=== PATIENT | female | born 1965 | race Caucasian/White ===

== ENCOUNTER 2018-09-25 16:05 | Inpatient (IN) ==
[2018-09-25] MEDS ORDERED: DUONEB (A & A) INH ONE (16:25)
[2018-09-25 16:42] LABS: BASO# 0.03 X1000 (0.0-0.2); BASO% 0.2 % (0.0-0.8); EOS# 0.02 X1000 (0.0-0.7); EOS% 0.1 % (0.0-10.0); HEMATOCRIT 44.4 % (37.0-47.0); HEMOGLOBIN 14.4 g/dL (12.0-16.0); IMM GRAN# 0.04 X1000 (0.0-0.04); IMM GRAN% 0.2 % (0.0-0.5); LYMPH# 2.24 X1000 (1.2-3.4); LYMPH% 13.8 % (20.5-51.1); MCH 29.9 PG (27-31); MCHC 32.4 g/dL (33-37); MCV 92.3 FL (81-99); MONO# 1.41 X1000 (0.11-0.59); MONO% 8.7 % (1.7-9.3); MPV 10.7 FL (7.4-10.4); NEUT# 12.45 X1000 (1.4-6.5); PLT 255 X1000 (130-400); RBC 4.81 XMIL (4.2-5.4); RDW 12.6 % (11.5-14.5); WBC 16.19 X1000 (4.8-10.8)
[2018-09-25] MEDS ORDERED: MORPHINE IV ONE (16:56)
[2018-09-25] MEDS ORDERED: SOLU-MEDROL IV ONE (16:56)
[2018-09-25] MEDS ORDERED: ROCEPHIN 1 GM in NS 50 ML IV ONE (16:56)
[2018-09-25] MEDS ORDERED: ZITHROMAX 500 MG/NS 500 MG/250 ML IVPB IV ONE (16:56)
[2018-09-25 17:02] LABS: ALLEN TEST YES; BLOOD TYPE ARTERIAL; HCO3-(ACT) 24.8 mmoll (20.0-26.0); METHB 0.9 % (0.0-1.5); O2(CT) 19.5 mL/dL (15.0-23.0); O2HB 93.2 % (95.0-99.0); PCO2(98.6) 36 mmHg (35-45); PO2(98.6) 71 mmHg (60-100); SAMPLE BLOOD; SAO2 95.9 % (95.0-100.0); THB 14.9 g/dL (11.5-17.4); pH(98.6) 7.43 (7.35-7.45)
[2018-09-25 17:03] LABS: MODALITY CANNULA
[2018-09-25 17:08] LABS: AGAP 11; ALBUMIN 3.7 g/dL (3.5-5.0); ALKALINE PHOSPHATASE 52 U/L (32-104); BUN 19 mg/dL (8-22); CALCIUM 10.1 mg/dL (8.8-10.2); CHLORIDE 95 mmol/L (98-107); COSMO 272; CREATININE 0.9 mg/dL (0.5-0.9); ESTIMATED GFR > 60; GLUCOSE 160 mg/dL (70-104); GOT 7 U/L (10-30); GPT 8 U/L (10-36); POTASSIUM 4.7 mmol/L (3.5-5.1); SODIUM 133 mmol/L (136-145); TCO2 27 mmol/L (25-35); TOTAL BILIRUBIN 0.69 mg/dL (0.20-1.00); TOTAL PROTEIN 7.3 g/dL (6.3-8.3)
[2018-09-25] MEDS ORDERED: NS 1,000 ML IV ONE (17:17)
--- NOTE | 2018-09-25 17:49 | Diag Imaging Result Doc PS360 ---
EXAM: CHEST-2 VIEWS INDICATION: cough TECHNIQUE: 2 views COMPARISON: 08/22/2018 FINDINGS: There is a known right hilar mass, which is similar in size when compared to the previous study. However, there is now airspace infiltrate in the right perihilar region and right lower lung zone suggesting pneumonia that is probably postobstructive. The left lung is clear. There is no discrete pleural fluid collection or pneumothorax. The cardiomediastinal silhouette and central vasculature are grossly unremarkable. IMPRESSION: Known right hilar mass with right mid and lower lung zone consolidation that is probably postobstructive. Electronically signed by Kirit Dominique 09/25/2018 5:46 PM
[2018-09-25 18:24] LABS: ALLEN TEST YES; BE -0.2 mmoll (-3.0-3.0); BLOOD TYPE ARTERIAL; HCO3-(ACT) 24.7 mmoll (20.0-26.0); O2(CT) 18.9 mL/dL (15.0-23.0); O2HB 95.9 % (95.0-99.0); PCO2(98.6) 29 mmHg (35-45); PO2(98.6) 107 mmHg (60-100); SAMPLE BLOOD; SAO2 98.4 % (95.0-100.0); THB 13.9 g/dL (11.5-17.4); pH(98.6) 7.49 (7.35-7.45)
[2018-09-25 18:25] LABS: MODALITY SIMPLE MASK
[2018-09-25] MEDS ORDERED: ZOFRAN IV PRN (19:13)
[2018-09-25] MEDS ORDERED: NICODERM PATCH TD PRN (19:13)
[2018-09-25] MEDS ORDERED: TYLENOL PO PRN (19:13)
[2018-09-25] MEDS ORDERED: ROCEPHIN 1 GM in NS 50 ML IV SCH (19:15)
[2018-09-25 19:26] LABS: INR 1.01; PROTIME 14.1 Seconds (11.0-16.0)
[2018-09-25] MEDS: DUONEB (A & A) INH SCH ×2 (19:30→23:15)
[2018-09-25] MEDS: LOVENOX SUBQ SCH (20:11)
--- NOTE | 2018-09-25 20:23 | HISTORY AND PHYSICAL ---
CHIEF COMPLAINT: Right chest pain. HISTORY OF PRESENT ILLNESS: The patient is a 53-year-old white female followed by Dr. Coates who presents to the emergency room complaining of a 1-1/2 day history of illness. She has had fever up to 102.5 developing yesterday. She has had cough productive of yellowish phlegm and today as had extreme right chest pain. 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 Harmon. She was scheduled to come in tomorrow for port placement per Dr. Balderas and is scheduled to start chemotherapy per Dr. Hernandez. MEDICATIONS: Prior to admission are Invokana 300 mg p.o. daily, Amaryl 2 mg p.o. daily, losartan 50 mg p.o. daily, gabapentin 300 mg p.o. b.i.d., Janumet XR 07/999 one p.o. daily, omeprazole 40 mg p.o. daily, Lipitor 10 mg p.o. daily. ALLERGIES: NKDA. PAST MEDICAL HISTORY: 1. Small cell lung CA on the right, diagnosed [address] Harmon per bronchoscopy and biopsy with plans for chemo per Dr. Hernandez. 2. Type 2 diabetes mellitus for many years. 3. Hypertension. 4. Hypercholesterolemia. 5. GERD. 6. Peripheral neuropathy. 7. Chronic low back pain. PAST SURGICAL HISTORY: 1. Cholecystectomy. 2. BTL. 3. Bronchoscopy with biopsy. 4. History of cervical biopsy and conization. FAMILY HISTORY: Notable for acute leukemia in her father, COPD in her father, atrial fibrillation in her father, diabetes in her father, CT in her father in his 70s. Multiple myeloma in her mother. Sister with asthma and cervical cancer. SOCIAL HISTORY: The patient lives in the local area. She is . She has 3 children. She has a greater than 30 pack year history of smoking, but quit within the past week. No alcohol usage. 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 REVIEW OF SYSTEMS: ROS notable for somewhat chronic diarrhea after her gallbladder was removed. She has also had some episodic low back pain, long-standing with MRI done on that in the past 2 years, which was negative for metastatic disease, did show some degenerative disk disease. MRI also done on the brain in the past few days per Dr. Hernandez with no metastatic disease identified. Otherwise, ROS negative except as above. PHYSICAL EXAMINATION: VITAL SIGNS: Temperature 100, pulse 118, respirations 30, blood pressure 141/45, O2 sat on room air was 91%. Weight 262, 6 feet tall. Pulse came down to 104 after treatment with morphine for pain 4 mg per ER physician. Blood pressure also decreased some and has improved since receiving fluid bolus of 1 L per the ER physician. She is not retaining CO2 by ABGs notably. Pain is better controlled after the morphine. GENERAL: Mild to moderate obesity. SKIN: No rashes. HEENT: NC/AT, PERRL, EOMI. Sclerae anicteric. Left TM with some dullness, chronic changes, possible prior perforated TM appears to have healed over. Right TM normal. OP no redness, slightly elongated uvula with a small area of redness at the tip, not severe. NECK: No LA, TMG, JVD or bruits. CARDIOVASCULAR: RRR, without murmur. LUNGS: Crackles and minimal rhonchi right lung base. Otherwise, distant breath sounds. BACK: No CVA tenderness. ABDOMEN: Protuberant, soft, NT, ND. No mass. No HSM. BREASTS/PELVIC/RECTAL: Deferred. EXTREMITIES: No calf tenderness, cords or edema. Spider veins over the shins prominent. NEUROLOGIC: CN 2 through 12 intact. NF. LABORATORY: White count 16.19, hemoglobin 14.4, hematocrit 44.4, MCV 92, platelets 255,000, neutrophils 77, lymphocytes 14, monocytes 8.7. Sodium 133, potassium 4.7, chloride 95, CO2 27, BUN 19, creatinine 0.9, glucose 160, calcium 10.1, total bilirubin 0.69, AST 7, ALT 8, alkaline phosphatase 52, proBNP 64, total protein 7.3, albumin 3.7. Plasma lactate 1.4. ABG done on 4 L initially was: pH 7.43, pCO2 36, PO2 71, HC03 24.8, O2 sat 95.9%. Then, the patient received morphine 4 mg and she received some good pain control with that, but required a higher dosage of oxygen and required 1 L bolus of normal saline. ABG was repeated: pH 7.49, pCO2 29, PO2 107, HC03 24.7, O2 sat 98.4%, this was on 5 L per mask. Blood cultures x2 have been obtained. Chest x-ray reveals known right hilar mass with right mid and lower lung zone consolidation, probably postobstructive pneumonia. ASSESSMENT: 1. Postobstructive pneumonia, right mid and lower lung ca related to #2. 2. Small cell CA, right hilum. 3. Mild hypotension following administration of morphine for pain control. 4. Severe right chest pain thought related to #2. 5. Hypoxia related to #1 and #2, requiring oxygen at 5 L/minute per simple mask. 6. Type 2 diabetes mellitus. 7. Hypertension. 8. Hypercholesterolemia. 9. Mild chronic diarrhea associated with prior history of cholecystectomy. 10. History of smoking. Off cigarettes now for a week. PLAN: At this time, will admit the patient to medical floor on telemetry. Continue the oxygen via simple mask at 5 L/minute. Continue morphine at low dose to control her right chest pain. She received Rocephin 1 g and Zithromax 500 mg in the emergency room and blood cultures have been obtained, and we will continue those antibiotics at this time and will repeat CBC, BMP in the morning. We will give DuoNebs q.4 hours while awake. She has received 1 dose of Solu-Medrol 80 mg and will hold on additional doses of that at this time. Place her on a diabetic diet and monitors serial Accu-Cheks and give SSI as required, leaving her off her antihypertensive due to the hypotension and off her diabetic medications as she may be undergoing port placement soon per Dr. Balderas. We will give her prophylactic doses of Lovenox at this point as she is high risk for DVT and will place pneumatic compression hose as well. She will be up with assistance only. We will place her on a diabetic diet. Give her symptomatic relief as needed with her Tylenol, Robitussin DM, Zofran, continue her Neurontin and as stated continue low-dose morphine for pain control. Dr. Hernandez will also see the patient tomorrow in consultation. cc: Deepak Plummer MD
[2018-09-25] MEDS: NEURONTIN PO SCH (21:30)
[2018-09-25] MEDS: HUMULIN R SUBQ SCH (21:30)
[2018-09-25] MEDS: ROBITUSSIN-DM PO SCH (23:01)
[2018-09-25] MEDS: MORPHINE IV PRN (23:01)
[2018-09-26] MEDS: ROBITUSSIN-DM PO SCH ×6 (01:25→21:07)
[2018-09-26] MEDS: HUMULIN R SUBQ SCH ×4 (06:11→23:06)
[2018-09-26 06:41] LABS: HEMATOCRIT 38.5 % (37.0-47.0); HEMOGLOBIN 12.5 g/dL (12.0-16.0); IMM GRAN# 0.03 X1000 (0.0-0.04); IMM GRAN% 0.2 % (0.0-0.5); LYMPH# 1.99 X1000 (1.2-3.4); MCH 30.4 PG (27-31); MCHC 32.5 g/dL (33-37); MCV 93.7 FL (81-99); MONO# 1.08 X1000 (0.11-0.59); MPV 10.8 FL (7.4-10.4); NEUT# 12.22 X1000 (1.4-6.5); NEUT% 79.8 % (42.2-75.2); PLT 219 X1000 (130-400); RBC 4.11 XMIL (4.2-5.4); RDW 12.4 % (11.5-14.5); WBC 15.32 X1000 (4.8-10.8)
[2018-09-26 07:24] LABS: AGAP 11; BUN 24 mg/dL (8-22); CALCIUM 9.1 mg/dL (8.8-10.2); CHLORIDE 101 mmol/L (98-107); COSMO 286; CREATININE 0.8 mg/dL (0.5-0.9); ESTIMATED GFR > 60; GLUCOSE 253 mg/dL (70-104); POTASSIUM 4.7 mmol/L (3.5-5.1); SODIUM 137 mmol/L (136-145); TCO2 25 mmol/L (25-35)
--- NOTE | 2018-09-26 07:26 | GENERAL SURGERY CONSULTATION ---
DATE: 09/26/2018 REQUESTING PHYSICIAN: Dr. Plummer. REASON FOR CONSULTATION: Pneumonia with previously-scheduled port placement for today. HISTORY OF PRESENT ILLNESS: A 53-year-old female who I had seen in the office who I actually had on the schedule for a Port-A-Cath placement today. She came to the emergency department with worsening complaints of shortness of breath and right chest wall pain. This has been going on for 1-1/2 days. She had a fever that developed up to 102.5. She had a productive cough. She was seen. The concern was she is developing a pneumonia. I was asked to weigh an opinion. The patient is feeling a little bit better since admission, she has been fed and has been drinking this morning. She is on antibiotics. PAST MEDICAL HISTORY: 1. Small cell lung cancer. 2. Diabetes mellitus. 3. Hypertension. 4. Hypercholesterolemia. 5. Gastroesophageal reflux disease. 6. Peripheral neuropathy. 7. Chronic pain. PAST SURGICAL HISTORY: 1. Cholecystectomy. 2. Tubal ligation. 3. Bronchoscopy. 4. Surgical intervention for abnormal Pap smear. FAMILY HISTORY: Positive for leukemia, COPD, atrial fib, diabetes, NV, multiple myeloma, cervical cancer, asthma. SOCIAL HISTORY: Former smoker. HOME MEDICATIONS: Reviewed. ALLERGIES: None. REVIEW OF SYSTEMS: A full 10 point review of systems obtained negative as specified in HPI. EXAM: Vital Signs: The patient is currently afebrile. Her vital signs are stable. She is saturating 90% on 7 L nasal cannula. General: No acute distress. Alert, oriented female looks stated age. HEENT: Normocephalic, atraumatic. Pupils equal, round, reactive to light. Mucous membranes moist. Oropharynx benign. Neck: Supple trachea midline. Cardiovascular: Regular rate and rhythm. Lungs: Grossly clear. Some coarse sounds noted. Abdomen: Soft, nontender, nondistended. Extremities: Moves all extremities. Neurologic: Grossly intact. Skin: No signs of jaundice. Vascular: All extremities perfused. LABORATORY: White blood cell count 16, hematocrit 44, platelet count 255,000. ABG reviewed. Remainder of labs reviewed. ASSESSMENT AND PLAN: A 53-year-old female with lung cancer and possible pneumonia. 1. Lung cancer. At this time, the pneumonia is probably related to the lung cancer, but given the fact that she has leukocytosis and a fever, I would like to give her at least a couple days of antibiotics. Her respiratory status is somewhat tenuous with being on 7 L right now still saturating in the 90s. May need to give her some breathing treatments to see if we can make some improvement. We will hold off on the port right now given the fact that she has an active infection. I have tentatively switched to have it done on Wednesday in the morning. This will at least give us several days of antibiotics before putting the port in her. cc: MD Dale Burgos MD
[2018-09-26] MEDS: MUCOMYST 20% INH SCH ×2 (07:38→19:15)
[2018-09-26] MEDS: DUONEB (A & A) INH SCH ×5 (07:38→23:06)
--- NOTE | 2018-09-26 07:49 | PROGRESS NOTE ---
DATE: 09/26/2018 HISTORY: A 53-year-old, white, female patient admitted with fever, chills, cough, expectoration, chest wall pain, and leukocytosis. Chest x-ray in the ER did reveal postobstructive pneumonia. The patient recently diagnosed to have small-cell lung cancer. The patient was hypoxemic. Clinically, patient is doing better. She denied any high-grade fever. Her shortness of breath is improving. The patient still has some chest wall pain. No hemoptysis. No nausea or vomiting. Denied any diarrhea, blood or mucus in the stool. No dysphagia or odynophagia. Admission history and physical noted. PAST MEDICAL HISTORY: Hypertension, hyperlipidemia, diabetes mellitus, low back pain, recently diagnosed to have small-cell lung cancer, gastritis and reflux disease, obesity. PHYSICAL EXAMINATION: Vital Signs: Blood pressure 111/60, pulse 69, respirations 19, temperature 98.5 degrees, T-max at home of 102. Skin: Normal turgor. Neck: Supple. No JVD, thyromegaly, or lymphadenopathy. Chest: Inspiratory crepitations, right base. Occasional wheezing. CVS: S1 and S2 heard. Abdomen: Soft, globular. Bowel sounds present. Extremities: No cyanosis, clubbing. No acute DVT. DI[employer]ER: Alert, awake. Able to move all 4 limbs. No acute DVT in the legs. CONSIDERATION: 1. Postobstructive pneumonia. 2. Small-cell lung cancer. 3. Diabetes mellitus. 4. History of hypertension but blood pressure doing better. 5. Gastritis and reflux disease. 6. Low back pain. PLAN: I am going to change antibiotics to Zosyn and Levaquin. Continue rest of the treatment. Monitor Accu-Chek. Pulmonary toilet. Overall plan discussed with the patient and she is in agreement. cc: Dale Coates MD
--- NOTE | 2018-09-26 09:52 | EKG Report ---
Test Performed on : 09/25/2018 4:21:46 PM Test Reason : diff breathing Blood Pressure : / mmHG Vent. Rate : 112 BPM Atrial Rate : 112 BPM P-R Int : 120 ms QRS Dur : 076 ms QT Int : 314 ms P-R-T Axes : 080 067 049 degrees QTc Int : 428 ms Sinus tachycardia. Nonspecific ST abnormality Abnormal ECG When compared with ECG of 22-AUG-2018 16:47, (Unconfirmed) Vent. rate has increased BY 43 BPM Unconfirmed Result
[2018-09-26] MEDS: LEVAQUIN 750 MG in NS 150 ML IV SCH (10:03)
[2018-09-26] MEDS: NEURONTIN PO SCH ×2 (10:03→20:23)
[2018-09-26] MEDS: PRILOSEC PO SCH (10:04)
[2018-09-26] MEDS: MORPHINE IV PRN ×2 (10:15→20:31)
[2018-09-26] MEDS: ZOSYN 3.375 GM in NS 50 ML IV SCH ×2 (12:36→20:23)
--- NOTE | 2018-09-26 14:51 | HEMO/ONC CONSULTATION ---
DATE: 09/26/2018 CHIEF COMPLAINT: We have been consulted for the management of patient's small cell lung cancer. HISTORY OF PRESENT ILLNESS: Ms. Salvador is a 53-year-old female who presented to the emergency department complaining of increased shortness of breath, fevers, productive cough with yellow phlegm and extreme right chest pain. The patient says she continues to increase and get worse, and was admitted at that time for further management and evaluation of possible pneumonia. Ms Salvador recently started following us in clinic for her small cell lung cancer. The patient was recently diagnosed with small cell lung cancer by Dr. Harmon on bronchoscopy. The patient was supposed to be getting a port placed, that way we can start chemotherapy as soon as possible. PAST MEDICAL HISTORY: Small cell lung cancer, type 2 diabetes mellitus, hypertension, hypercholesterolemia, GERD, peripheral neuropathy and chronic low back pain. PAST SURGICAL HISTORY: Cholecystectomy, BTL, bronchoscopy and cervical biopsy and colonization. FAMILY HISTORY: Acute leukemia, COPD, atrial fibrillation, diabetes and multiple myeloma, has been cervical cancer. SOCIAL HISTORY: She has a greater than 30 pack year history of smoking, quit within the last week. No alcohol or illicit drug use. ALLERGIES: No known drug allergies. HOME MEDICATIONS: Invokana, gabapentin, glimepiride, losartan, metoclopramide, multivitamins, promethazine, Janumet XR, vitamin B complex and zinc. REVIEW OF SYSTEMS: Negative as per HPI. PHYSICAL EXAMINATION: Vital Signs: Temperature 98.2, heart rate 74, respiratory rate 18, blood pressure 104/46. Satting 90% on nasal cannula. General: Patient is awake, lying in bed. No acute distress noted. HEENT: Anicteric. Pupils PERRLA. Mucous membranes moist. Neck: Supple. Trachea midline. No JVD. Lymph Nodes: No palpable lymphadenopathy. Cardiovascular: S1, S2. Regular rate and rhythm. No rubs or murmurs. Lungs: Bilateral breath sounds with crackles and rhonchi in the right lung base. Abdomen: Soft, nontender. Bowel sounds present all 4 quadrants. No hepatosplenomegaly noted. Skin: Warm, dry and intact. Neurologic: Alert and oriented x 3. No focal deficits noted. LABORATORY DATA: White cell count 15.32, hemoglobin 12.9, hematocrit 38.5, platelets are 219,000. Potassium 4.7, BUN 24, creatinine 0.8. Chest x-ray: Radiology results of chest x-ray shows known right hilar mass with right mid and lower lung zone consolidation that is probably postobstructive. ASSESSMENT AND PLAN: 1. Small-cell lung cancer: The patient to get Port-A-Cath placement on Wednesday to start treatment as soon as possible. We will get Dr. Harmon consulted as well for further evaluation to see if we can start treatments. 2. Post obstructive pneumonia: The patient will continue antibiotics. Continue medication per primary team and consult Dr. Harmon. 3. Diabetes mellitus, continue recommendations per primary medical team. 4. Hypertension. Aware. Continue recommendations per primary medical team. 5. GERD. Continue PPI and recommendations by primary medical team. 6. Chronic lower back pain. Continue recommendations per primary medical team. 7. Deep venous thrombosis prophylaxis. Continue Lovenox as ordered. Dictated by LEAH Monroy for Luther Hernandez MD Patient seen and examined. Patient has been recently diagnosed with limited stage small cell lung cancer. She presented with fever, cough and right posterior chest pain. Chest x-ray was concerning for pneumonia. She has been admitted and is on antibiotics. Her chest pain is much better. She was due to have a Port-A-Cath placed today and chemotherapy tomorrow, which has been postponed. We will consult Dr. Harmon. Plan for chemotherapy as soon as possible. Luther Hernandez M.D. cc: LEAH Monroy MD Bharat K. Vakharia, MD [facility]ITAL[facility]
[2018-09-26] MEDS ORDERED: ZITHROMAX 500 MG/NS 500 MG/250 ML IVPB IV SCH (17:30)
[2018-09-26] MEDS: LOVENOX SUBQ SCH (20:25)
--- NOTE | 2018-09-26 23:35 | PULMONOLOGY CONSULTATION ---
DATE: 09/26/2018 REASON FOR CONSULTATION: Lung cancer and fevers. HISTORY OF PRESENT ILLNESS: Ms Salvador is a 53-year-old white female who was initially seen in my office 09/08/2018 with a newly diagnosis lung mass. Patient underwent bronchoscopy on 09/12/2018 which revealed tumor involving the bronchus intermedius with tumor involving the airflow divider between the middle lobe and lower lobe with no narrowing of the middle lobe entrance. Biopsies confirmed small cell carcinoma. The patient was referred to Oncology. The patient was scheduled to have a port placement. This weekend she developed chest pain along with fevers as high as 102 degrees. Chest x-ray was performed which reveals new airspace infiltrate involving the right perihilar region along with the right lower lung zone. The patient was admitted for additional evaluation and management. PAST MEDICAL HISTORY: 1. Recent diagnosis of small-cell carcinoma as per above. 2. Type 2 diabetes mellitus. 3. Chronic back pain. 4. B12 deficiency. 5. Status post cholecystectomy . 6. History uterine ablation. SOCIAL HISTORY: Recent discontinuation of tobacco. No significant alcohol use. She is . FAMILY HISTORY: Positive for leukemia, COPD, diabetes, coronary artery disease, cervical cancer, and multiple myeloma. REVIEW OF SYSTEMS: Notable for anterior chest pain, fevers, increased cough with yellow to blood- tinged sputum. PHYSICAL EXAMINATION: Reveals a healthy-appearing white female who appears to be in no distress. BP 115/51, heart rate 78, respiratory rate 16, oxygen saturation 95%.HEENT: Pupils are equal and reactive. Oropharynx appears clear. Neck: Supple. Chest: Reveals coarse rhonchi, right base. Cardiac: S1, S2. Abdomen: Soft and without hepatosplenomegaly. Extremities: Without edema. LABORATORIES: White blood count 15.3 thousand, hemoglobin 12.5, platelet count 219,000. Arterial blood gas, pH 7.49, pCO2 of 29, PO2 of 107. Chemistry. Sodium 137, potassium 4.7, chloride 101, bicarbonate 25, BUN 24, creatinine 0.8, glucose 168. IMPRESSION: A 53-year-old with small cell carcinoma, postobstructive pneumonia, fevers, minor hemoptysis, acute hypoxemic respiratory failure, and diabetes mellitus. RECOMMENDATIONS: 1. Agree with broad spectrum antibiotics that you are using. 2. Collect a sputum for C and S. 3. Agree with DVT prophylaxis unless she develops increased bloody sputum. 4. Continue current bronchial hygiene regimen. We will add incentive spirometry. 5. Recommend initiating chemotherapy after she has completed at least 7 days of antibiotics and she has demonstrated clinical improvement. cc: MD Dale Govea MD
[2018-09-27] MEDS: MORPHINE IV PRN ×2 (00:05→06:10)
[2018-09-27] MEDS: ROBITUSSIN-DM PO SCH ×6 (01:23→22:25)
[2018-09-27] MEDS: ZOSYN 3.375 GM in NS 50 ML IV SCH ×4 (02:42→21:10)
[2018-09-27] MEDS: PRILOSEC PO SCH (06:09)
[2018-09-27] MEDS: HUMULIN R SUBQ SCH ×4 (06:17→21:10)
[2018-09-27] MEDS ORDERED: MILK OF MAGNESIA PO PRN (06:53)
--- NOTE | 2018-09-27 07:14 | PROGRESS NOTE ---
DATE: 09/27/2018 SUBJECTIVE: Ms Salvador is feeling some better. The patient does have cough with scanty sputum production, low-grade fever. She has soreness when she coughs. No nausea or vomiting. The patient is scheduled to have port placement tomorrow for her chemo. No dysuria or hematuria. Known case of hypertension, diabetes, hyperlipidemia, small cell lung cancer. OBJECTIVE: Vital signs: Noted. Blood pressure low normal. Her antihypertensives are on hold. Neck: Supple. No JVD. Lungs: Inspiratory crepitation right base. Cardiovascular: S1 and S2 heard. Abdomen: Soft, globular. Bowel sounds present. Extremities: No cyanosis, clubbing. No acute DVT. Central nervous system: Alert, awake able to move all 4 limbs. CONSIDERATION: 1. Right lower lobe pneumonia, post obstructive. 2. Small cell lung cancer. 3. Diabetes mellitus. 4. Hypertension. 5. Hyperlipidemia. 6. Chest wall pain. PLAN: Continue broad-spectrum antibiotics. Pulmonary toilet. DVT prophylaxis. Monitor patient closely. The patient is on insulin for her diabetes. Will treat her constipation symptomatically. Labs and medication noted. I appreciate lactation consultant's help managing patient. Morning lab pending. cc: Dale Coates MD
--- NOTE | 2018-09-27 07:15 | GENERAL SURGERY PROGRESS NOTE ---
DATE: 09/27/2018 SUBJECTIVE: Patient seems to be doing better. She seems to be breathing better overall. OBJECTIVE: Vital Signs: The patient is currently afebrile. Her vital signs are stable. General Examination: No acute distress. HEENT: Normocephalic, atraumatic. Pupils equal, round, reactive to light. Mucous membranes moist. Oropharynx benign. Neck: Supple. Trachea midline. Cardiovascular: Regular rate and rhythm. Lungs: Some coarse sounds noted. Abdomen: Soft, nontender, nondistended. Extremities: Moves all extremities. Neurologic: Grossly intact. Skin: No signs of jaundice. Vascular: All extremities perfused. Laboratory: White blood cell count decreasing as of yesterday. ASSESSMENT AND PLAN: A 53-year-old female with lung cancer and possible pneumonia. Lung cancer. At this time, we will plan on placement of a port tomorrow morning. I will give her at least 48 hours of antibiotics. She is aware of the risks, benefits, and alternatives as discussed with her in the office. We will make her nothing per oral after midnight and place the port tomorrow. cc: MD Dale Burgos MD
[2018-09-27 07:26] LABS: BASO# 0.01 X1000 (0.0-0.2); BASO% 0.1 % (0.0-0.8); EOS# 0.02 X1000 (0.0-0.7); EOS% 0.2 % (0.0-10.0); HEMATOCRIT 38.2 % (37.0-47.0); HEMOGLOBIN 12.1 g/dL (12.0-16.0); IMM GRAN# 0.02 X1000 (0.0-0.04); IMM GRAN% 0.2 % (0.0-0.5); LYMPH# 2.45 X1000 (1.2-3.4); LYMPH% 21.2 % (20.5-51.1); MCH 29.7 PG (27-31); MCHC 31.7 g/dL (33-37); MCV 93.9 FL (81-99); MONO# 1.06 X1000 (0.11-0.59); MONO% 9.2 % (1.7-9.3); MPV 10.9 FL (7.4-10.4); NEUT# 7.97 X1000 (1.4-6.5); NEUT% 69.1 % (42.2-75.2); PLT 253 X1000 (130-400); RBC 4.07 XMIL (4.2-5.4); RDW 12.6 % (11.5-14.5); WBC 11.53 X1000 (4.8-10.8)
[2018-09-27] MEDS: MUCOMYST 20% INH SCH ×2 (07:34→19:45)
[2018-09-27] MEDS: DUONEB (A & A) INH SCH ×5 (07:34→23:12)
[2018-09-27 07:39] LABS: AGAP 10; ALB/GLOB RATIO 1.1; ALBUMIN 3.1 g/dL (3.5-5.0); ALKALINE PHOSPHATASE 45 U/L (32-104); BUN 20 mg/dL (8-22); CALCIUM 8.5 mg/dL (8.8-10.2); CHLORIDE 99 mmol/L (98-107); COSMO 275; CREATININE 0.8 mg/dL (0.5-0.9); ESTIMATED GFR > 60; GLUCOSE 147 mg/dL (70-104); GOT 10 U/L (10-30); GPT 10 U/L (10-36); POTASSIUM 4.4 mmol/L (3.5-5.1); SODIUM 135 mmol/L (136-145); TCO2 26 mmol/L (25-35); TOTAL BILIRUBIN 0.46 mg/dL (0.20-1.00)
[2018-09-27] MEDS: NEURONTIN PO SCH ×2 (08:18→21:10)
[2018-09-27] MEDS: LEVAQUIN 750 MG in NS 150 ML IV SCH (08:18)
[2018-09-27] MEDS: COLACE PO SCH ×3 (08:21→21:13)
--- NOTE | 2018-09-27 14:19 | HEMO/ONC PROGRESS NOTE ---
DATE: 09/27/2018 SUBJECTIVE: Patient says shortness of breath continues to improve. The patient's cough is also slowly improving. The patient says chest pain continues to improve as well. No other new complaints. OBJECTIVE: Vital Signs: Temperature 99.1 degrees, heart rate 80, respiratory rate 18, blood pressure 116/51 saturation 95% on nasal cannula. General: Patient is awake, lying in bed, no acute distress noted. HEENT: Anicteric. Pupils PERRLA. Mucous membranes moist. Cardiovascular: S1, S2. Regular rate and rhythm. Chest: Bilateral breath sounds with coarse rhonchi in the right base. Abdomen: Soft, nontender. Bowel sounds present in all 4 quadrants. Neurologic: Alert and oriented x3. No focal deficits noted. LABORATORY DATA: White blood cell count 11.53, hemoglobin 12.9, hematocrit 38.2, platelets are 253. Potassium 4.4, BUN 20, creatinine 0.8. ASSESSMENT AND PLAN: 1. Small-cell lung cancer: The patient is scheduled for Port-A-Cath placement for chemotherapy tomorrow morning. Once patient has finished 7 day round of antibiotic, we will get her started on chemotherapy. 2. Aspiration pneumonia: Patient continue antibiotics. Continue medication per primary team and pulmonology. 3. Deep venous thrombosis prophylaxis: Continue with Lovenox as ordered. 4. Supportive care: Continue protein shakes t.i.d. Continue to have patient get out of bed as much as possible. The patient will continue exercise as instructed. Dictated by LEAH Monroy for Luther Hernandez MD Patient seen and examined. Patient continues to feel better from her pneumonia. She is due for a Port-A-Cath tomorrow. Plans for chemotherapy early next week. Luther Hernandez M.D. cc: LEAH Monroy MD Bharat K. Vakharia, MD MTDD
[2018-09-27] MEDS: NORCO-7.5 PO PRN (16:50)
--- NOTE | 2018-09-27 21:08 | PULMONOLOGY PROGRESS NOTE ---
DATE: 09/27/2018 SUBJECTIVE: The patient is awake, alert and conversant. She continues to have cough with some sputum production. Overall she feels improved, with decreased anterior chest wall pain. OBJECTIVE: Maximum temperature in the last 24 hours 99.5 degrees. HEENT: Pupils are equal and reactive. Oropharynx appears clear. Neck is supple. Chest reveals rhonchi over the large airways on the right, but clear on the left. Cardiac exam: S1, S2. Abdomen is soft and without hepatosplenomegaly. Extremities are without edema. LABORATORY DATA: Sputum culture is pending. White blood count is 11.53, hemoglobin 12.1, platelet count 253,000. IMPRESSION: 1. A 53-year-old with small-cell carcinoma. 2. Postobstructive pneumonia. 3. Fevers. 4. Acute hypoxemic respiratory failure. 5. Minor hemoptysis. RECOMMENDATIONS: 1. Continue broad-spectrum antibiotics as you are doing. 2. Continue bronchial hygiene. 3. Anticipate port placement tomorrow. 4. Recommend continuing antibiotics for 7 days before beginning chemotherapy. Would also consider a chronic suppressive antibiotic such as Augmentin during chemotherapy, given the postobstructive nature of her illness. cc: MD Dale Govea MD
[2018-09-27] MEDS: LOVENOX SUBQ SCH (21:10)
[2018-09-28] MEDS: ROBITUSSIN-DM PO SCH ×6 (01:38→20:04)
[2018-09-28] MEDS: ZOSYN 3.375 GM in NS 50 ML IV SCH ×4 (03:39→20:03)
[2018-09-28] MEDS: HUMULIN R SUBQ SCH ×4 (06:13→22:25)
--- NOTE | 2018-09-28 06:23 | GENERAL SURGERY PROGRESS NOTE ---
DATE: 09/28/2018 SUBJECTIVE: Patient doing okay. OBJECTIVE: Vital Signs: Patient is currently afebrile. Her vital signs are stable. General: No acute distress. HEENT: Normocephalic, atraumatic. Pupils equal, round, reactive to light. Mucous membranes moist. Oropharynx benign. Neck: Supple. Trachea midline. Cardiovascular: Regular rate and rhythm. Lungs: Some coarse sounds noted. Abdomen: Soft, nontender, nondistended. Extremities: Moves all extremities. Neurologic: Grossly intact. Skin: No signs of jaundice. Vascular: All extremities perfused. LABORATORY: Reviewed from yesterday. White blood cell count is trending down. ASSESSMENT AND PLAN: A 53-year-old female with lung cancer and possible pneumonia. Lung cancer. At this time, we will plan on placement of a port today. She is aware of the risks, benefits, and alternatives, we discussed it in the office. She has been n.p.o. since midnight. She is on the schedule, again try to do that today. cc: MD Dale Burgos MD
--- NOTE | 2018-09-28 06:48 | PROGRESS NOTE ---
DATE: 09/28/2018 SUBJECTIVE: Ms. Salvador is doing better. The patient still has cough with expectoration. No hemoptysis. Some chest wall pain. No nausea or vomiting. Denied any chest pain or palpitations. Denied any dysuria. The patient is scheduled to have port placement today for her chemotherapy. OBJECTIVE: Vital Signs: Noted. Temperature 99.3 degrees, blood pressure 120/51, pulse 78, respirations 16. Neck: Supple. No JVD. Lungs: Bilateral occasional wheezing. Cardiovascular: S1 and S2 heard. Abdomen: Soft, globular. Bowel sounds present. Central nervous system: Alert, awake able to move all 4 limbs. Extremities: No acute DVT. LABORATORY DATA: Done yesterday noted. WBC count improving, hemoglobin 12.1, hematocrit 38.2. Electrolytes: Sodium 135, potassium 4.4. Accu-Chek results reviewed. MEDICAL PROBLEMS: 1. Post obstructive pneumonia. 2. Diabetes mellitus on sliding scale insulin. 3. Small cell lung cancer. 4. Gastritis. 5. History of hypertension. PLAN: The patient is scheduled to have port placement today. The risks and benefits of the procedure discussed with the patient. The patient understood and agreed. We will continue current treatment and close observation. cc: Dale Coates MD
[2018-09-28] MEDS: MUCOMYST 20% INH SCH ×2 (07:17→19:31)
[2018-09-28] MEDS: DUONEB (A & A) INH SCH ×5 (07:17→23:02)
[2018-09-28] MEDS: LEVAQUIN 750 MG in NS 150 ML IV SCH (08:26)
[2018-09-28] MEDS ORDERED: XYLOCAINE 1% ONE (08:53)
[2018-09-28] MEDS ORDERED: SENSORCAINE-MPF 0.5%/EPI 1:200,000 ONE (08:53)
[2018-09-28] MEDS ORDERED: NS 250 ML ONE (08:53)
--- NOTE | 2018-09-28 11:05 | Diag Imaging Result Doc PS360 ---
EXAM: CHEST-PORTABLE 09/28/2018 HISTORY: port placement TECHNIQUE: AP portable at 1050 COMMENT: There is a Port-A-Cath in the right internal jugular with its tip in the right atrium. There is no evidence of pneumothorax. There is suboptimal inspiration and increased opacity in both lower lung ca particularly the right lower lobe. IMPRESSION: Bibasilar atelectasis versus pneumonia. Right perihilar mass. Electronically signed by Carlos Peters 09/28/2018 11:03 AM
--- NOTE | 2018-09-28 11:16 | OPERATIVE NOTE ---
PROCEDURE DATE: 09/28/2018 PREOPERATIVE DIAGNOSIS: Small cell lung cancer. POSTOPERATIVE DIAGNOSIS: Small cell lung cancer. PROCEDURES: Ultrasound and fluoroscopic-guided right internal jugular vein Port-A-Cath placement. SURGEON: Parker Balderas MD. HOSPICE CLINICAL SUPERVISOR: None. ANESTHESIA: General endotracheal. INTRAOPERATIVE FINDINGS: Ultrasound showed good caliber right internal jugular vein. Fluoroscopy showed the catheter in good position. COMPLICATIONS: None at the time of this dictation. ESTIMATED BLOOD LOSS: 5 mL. SPECIMENS REMOVED: None. BRIEF HISTORY: A 53-year-old female with lung cancer. It was felt that she needed a port. The risks, benefits, and alternatives were discussed. All questions answered. DESCRIPTION OF PROCEDURE: After informed consent was obtained, patient brought over to the operative theatre, transferred to the operating table, placed in the supine position. General endotracheal anesthesia was then performed without complication. A formal time-out was then performed confirming patient, date, procedure. All in agreement. At that time, attention turned to the right neck. Under local anesthetic and ultrasound guidance, I was able to cannulate the right internal jugular vein, pass a wire. It was seen going to the superior vena cava under fluoroscopy. We then created a pocket on the right chest wall and tunneled the catheter from the right chest wall to the right neck, exchanged the wire in typical Seldinger technique to place the tip of the catheter in the superior vena cava. We secured the port in the pocket as normal. We aspirated and flushed easily. We then closed the skin. The patient tolerated the procedure well and was transferred back to the recovery room in stable condition. A chest x-ray is pending but there was no obvious pneumothorax on fluoroscopy. cc: MD Dale Burgos MD
[2018-09-28] MEDS: COLACE PO SCH ×2 (14:54→20:03)
[2018-09-28] MEDS: PRILOSEC PO SCH (14:54)
[2018-09-28] MEDS: NEURONTIN PO SCH ×2 (14:54→20:03)
[2018-09-28] MEDS: LOVENOX SUBQ SCH (20:03)
[2018-09-28] MEDS: NORCO-7.5 PO PRN (20:11)
[2018-09-29] MEDS: ROBITUSSIN-DM PO SCH ×4 (01:56→15:51)
--- NOTE | 2018-09-29 02:10 | PULMONOLOGY PROGRESS NOTE ---
DATE: 09/28/2018 SUBJECTIVE: The patient is awake, alert, and conversant. She reports she feels better. Chest pain has nearly resolved. She continues to have purulent sputum production but it is diminishing. OBJECTIVE: Vital Signs: The patient has been afebrile for the last 24 hours. Blood pressure 122/52, heart rate 67, respiratory rate 14, oxygen saturation 100% on 5 L per nasal cannula. HEENT: Pupils are equal and reactive. Oropharynx is clear. Neck: Supple. Chest: Reveals diminished breath sounds right anterior base. Cardiac: S1, S2. Abdomen: Soft. Extremities: Without edema. LABORATORIES: Chest x-ray is a portable film making it difficult to interpret, but it is post port placement. She does have a basilar pneumonia and a right perihilar mass. IMPRESSION: The patient is a 53-year-old with: 1. Small cell carcinoma. 2. Postobstructive pneumonia. 3. Fevers. 4. Acute hypoxemic respiratory failure. 5. Minor hemoptysis. DISCUSSION: Patient with small cell carcinoma, as per above. She has had marginal improvement. RECOMMENDATIONS: 1. Continue broad-spectrum antibiotics. 2. Continue bronchial hygiene. 3. We will obtain a two-view chest x-ray tomorrow. 4. Recommend current antibiotic regimen for 7 days. Would recommend a chronic suppressive antibiotic such as Augmentin while she is undergoing chemotherapy. cc: MD Dale Govea MD
[2018-09-29] MEDS: ZOSYN 3.375 GM in NS 50 ML IV SCH ×3 (02:14→15:49)
[2018-09-29] MEDS: PRILOSEC PO SCH (06:16)
--- NOTE | 2018-09-29 06:25 | GENERAL SURGERY PROGRESS NOTE ---
DATE: 09/29/2018 The patient tolerated port placement. Chest x-ray shows no obvious pneumothorax. From a surgical point of view, it can be used. I can see her as needed. cc: MD Dale Burgos MD
[2018-09-29] MEDS: HUMULIN R SUBQ SCH ×3 (06:55→15:52)
--- NOTE | 2018-09-29 07:04 | PROGRESS NOTE ---
DATE: 09/29/2018 SUBJECTIVE: Ms. Salvador is feeling better. The patient still has cough, chest wall pain. No high- grade fever or chills. Denied any nausea or vomiting. The patient had Port-A-Cath placed yesterday. No dysuria or hematuria. Oral intake is fair. OBJECTIVE: Vital signs: Noted, which are stable. The patient is still requiring 4 to 5 L of oxygen via nasal cannula. Neck: Supple. No JVD. Lungs: Bibasilar crepitations. Occasional wheezing. Cardiovascular: S1 and S2 heard. Abdomen: Soft, globular. Bowel sounds present. ORTHODONTIC TREATMENT COORDINATOR: Alert, awake. Able to move all 4 limbs. ASSESSMENT AND DISCUSSION: 1. Consideration small cell lung cancer, status post port placement. 2. Post obstructive pneumonia. 3. Diabetes mellitus on sliding scale insulin. 4. Hypertension. Blood pressure doing better without medicine. Overall, the patient is doing better. I am going to check appropriate labs and chest x-ray in. If clinical condition permits, will plan discharging the patient home soon. cc: Dale Coates MD
--- NOTE | 2018-09-29 07:43 | Diag Imaging Result Doc PS360 ---
EXAM: CHEST-2 VIEWS HISTORY: abnormal exam TECHNIQUE: Chest two views COMPARISON: 09/28/2018 FINDINGS: Increased density persists in the right lung base. This is less prominent than on the prior study. No cardiomegaly. No pulmonary edema. No change in the right-sided portacatheter. No pneumothorax. IMPRESSION: Interval improvement Electronically signed by Tan Loza 09/29/2018 7:40 AM
[2018-09-29] MEDS: MUCOMYST 20% INH SCH (08:18)
[2018-09-29] MEDS: DUONEB (A & A) INH SCH ×3 (08:19→14:59)
[2018-09-29 08:57] LABS: BASO# 0.02 X1000 (0.0-0.2); BASO% 0.2 % (0.0-0.8); EOS# 0.09 X1000 (0.0-0.7); HEMATOCRIT 37.3 % (37.0-47.0); HEMOGLOBIN 11.6 g/dL (12.0-16.0); IMM GRAN# 0.03 X1000 (0.0-0.04); IMM GRAN% 0.3 % (0.0-0.5); LYMPH# 1.91 X1000 (1.2-3.4); LYMPH% 20.9 % (20.5-51.1); MCH 29.7 PG (27-31); MCHC 31.1 g/dL (33-37); MCV 95.4 FL (81-99); MONO# 0.82 X1000 (0.11-0.59); MPV 10.6 FL (7.4-10.4); NEUT# 6.26 X1000 (1.4-6.5); NEUT% 68.6 % (42.2-75.2); PLT 251 X1000 (130-400); RBC 3.91 XMIL (4.2-5.4); RDW 12.4 % (11.5-14.5); WBC 9.13 X1000 (4.8-10.8)
[2018-09-29 09:14] LABS: AGAP 9; ALBUMIN 2.8 g/dL (3.5-5.0); ALKALINE PHOSPHATASE 46 U/L (32-104); BUN 10 mg/dL (8-22); CALCIUM 8.3 mg/dL (8.8-10.2); CHLORIDE 101 mmol/L (98-107); COSMO 280; CREATININE 0.6 mg/dL (0.5-0.9); ESTIMATED GFR > 60; GLUCOSE 230 mg/dL (70-104); GOT 11 U/L (10-30); GPT 13 U/L (10-36); MAGNESIUM 1.8 mg/dL (1.5-2.7); POTASSIUM 4.3 mmol/L (3.5-5.1); SODIUM 137 mmol/L (136-145); TCO2 27 mmol/L (25-35); TOTAL BILIRUBIN 0.45 mg/dL (0.20-1.00); TOTAL PROTEIN 5.7 g/dL (6.3-8.3)
[2018-09-29] MEDS: LEVAQUIN 750 MG in NS 150 ML IV SCH (09:46)
[2018-09-29] MEDS: NEURONTIN PO SCH (09:47)
[2018-09-29] MEDS: COLACE PO SCH (09:48)
--- NOTE | 2018-09-29 12:41 | HEMO/ONC PROGRESS NOTE ---
DATE: 09/28/2018 SUBJECTIVE: The patient continues to feel better. The patient will be going for a port placement later today. OBJECTIVE: Vital Signs: Temperature 99.1 degrees, heart rate 74, respiratory rate 20, blood pressure 121/48, satting 93% on nasal cannula. General: The patient is awake, lying in bed. No acute distress noted. HEENT: Anicteric. Mucous membranes moist. Chest: Bilateral breath sounds, diminished bilaterally. Cardiovascular: S1, S2. Abdomen: Soft, nontender. Bowel sounds present in all 4 quadrants. Neurologic: Alert and oriented x3. No focal deficits noted. ASSESSMENT AND PLAN: 1. Small-cell lung cancer: Patient to receive Port-A-Cath later today. Patient will follow up in clinic early next week for chemotherapy. That will be after her 7-day round of antibiotic. 2. Aspiration pneumonia: Continue antibiotics. Continue recommendations per primary team and Pulmonology. 3. Deep venous thrombosis prophylaxis: Continue Lovenox as ordered. 4. Supportive care: The patient will continue with protein shakes three times daily. The patient will continue to be out of bed as much as possible. The patient will continue exercise as instructed. Plan of care discussed with Dr. Hernandez. Dictated by LEAH Monroy for Luther Hernandez MD cc: LEAH Monroy MD Bharat K. Vakharia, MD [facility]
[2018-09-29 15:51] VITALS: BP 111/59
--- NOTE | 2018-09-30 16:49 | DISCHARGE SUMMARY ---
ADMISSION DATE: 09/25/2018 DISCHARGE DATE: 09/29/2018 FINAL DISCHARGE DIAGNOSES: 1. Post obstructive pneumonia. 2. Small cell lung cancer. 3. Noninsulin dependent diabetes mellitus. 4. Hypertension. 5. Hyperlipidemia. 6. Low back pain. 7. Chest wall pain. 8. Weight loss. 9. Peripheral neuropathy. HISTORY AND HOSPITAL COURSE: Ms. Salvador is a 53-year-old, white female patient, recently diagnosed to have lung mass turned out to be a small cell lung cancer. The patient was ready to start chemotherapy after having a port placement the day prior. The patient had significant chest wall pain. Cough productive of yellowish sputum. She also had fever. The pain was moderate to severe in intensity. The patient came to the emergency room. Found to have postobstructive pneumonia and patient was admitted to the hospital. The patient was treated with IV antibiotics, pain management, symptomatic treatment, oxygen and close observation. The patient was hypoxemic. Her clinical condition gradually improved. The patient had surgical oncology and pulmonary consult done. Dr. Balderas placed a Port-A-Cath. Her clinical condition gradually improved. Her breathing improved. The patient was feeling better. The patient was eager to go home. She wanted to sleep in her own bed. Discussed with the lithograph press operator tinware, and they decided to discharge the patient home on Augmentin. Her oxygen saturation was staying satisfactory on 3 L via nasal cannula. I am going to discharge the patient home on oxygen, bronchodilator treatment, antibiotics. Advised her not to take blood pressure medicine unless blood pressure starts going more than 150. Monitor Accu-Chek and blood pressure at home. I re-evaluated the patient today noon time. The patient was stable enough to go home and decided to discharge her home. OBJECTIVE: Vital Signs: Stable. Neck: Supple. No JVD. Inspiratory crepitation right middle lobe. Occasional wheezing. No movement of accessory muscle of respiration. CVS: S1 and S2 heard. Abdomen: Soft, nontender. Bowel sounds present. No acute DVT. MANAGER CASE: Alert, awake. Able to move all 4 limbs. LABORATORY DATA: WBC count 9.13, hemoglobin 11.6, hematocrit 37.3, platelet count 251. Electrolytes done today, potassium 4.3, BUN 10, creatinine 0.6, albumin 2.8, total protein 5.7. The patient's chest x-ray done today did show interval improvement in the infiltrate. No pulmonary edema. DISCHARGE CONDITION: The overall discharge condition satisfactory. DISCHARGE PLAN: The patient was discharged home on Augmentin bronchodilator treatment. Gave him pain medicine. In case of more distress, call us back or go to the emergency room. Follow-up with me in a week time. She will start antibiotics after 4-5 days. cc: Dale Coates MD
== END 2018-09-29 18:38 | disposition home or self-care (01) | DRG 981 ==
LOC: ED 16:05 → 3N 21:27
PROVIDERS: ADMIT Internal Medicine; ATTEND Internal Medicine
CPT/HCPCS: 71010; 71020; 71045; 71046; 77001; 80048; 80053; 82805; 82948; 83605; 83735; 83880; 85025; 85610; 85730; 87040; 87070; 87205; 87275; 87276; 87804; 89220; 93005; 94640; 94761; 94799; 96365; 96366; 96367; 96368; 96372; 96375; 99285; A9270; C1788; J0456; J0696; J1650; J1956; J2270; J2543; J2930; J7030; J7050; XXXXX

== ENCOUNTER 2019-09-11 17:51 | Inpatient (IN) ==
[2019-09-11] MEDS ORDERED: ROCEPHIN 1 GM in NS 50 ML IV ONE (18:09)
[2019-09-11] MEDS ORDERED: SOLU-MEDROL IV ONE (18:09)
--- NOTE | 2019-09-11 18:27 | Diag Imaging Result Doc PS360 ---
EXAM: CHEST-PORTABLE INDICATION: sob TECHNIQUE: One view COMPARISON: 09/29/2018 FINDINGS: The right chest port is in stable position. There is complete opacification of the right hemithorax. This indicates marked atelectasis or large effusion. There does appear to be some rightward mediastinal shift suggesting volume loss. However, this could also be due to rotation. The left lung is grossly clear. The visualized portion of the cardiac silhouette is unremarkable. IMPRESSION: Complete opacification of the right hemithorax as described. Electronically signed by Kirit Dominique 09/11/2019 6:25 PM
[2019-09-11 18:36] LABS: ALLEN TEST YES; BE 3.5 mmoll (-3.0-3.0); BLOOD TYPE ARTERIAL; HCO3-(ACT) 27.4 mmoll (20.0-26.0); O2(CT) 15.7 mL/dL (15.0-23.0); PCO2(98.6) 40 mmHg (35-45); PO2(98.6) 52 mmHg (60-100); SAMPLE BLOOD; SAO2 91.3 % (95.0-100.0); THB 12.8 g/dL (11.5-17.4); pH(98.6) 7.45 (7.35-7.45)
[2019-09-11 18:38] LABS: MODALITY CANNULA
[2019-09-11 18:39] LABS: O2HB 87.4 % (95.0-99.0)
--- NOTE | 2019-09-11 18:47 | PROVIDER DOCUMENTATION ---
This chart was entered by Rebecca Dominique Scribe, acting as scribe for Marlo Angulo MD. HPI-General Adult - General Source: patient, family, EMS - History of Present Illness -Gen Adult Nature of Presenting Problems: pt is a 54 yowf presenting w/family and ems to er w/cc sob, congestion starting last weekend, poor appetite for 2-3 weeks and weakness. pt has hx of lung cancer w/mets to liver and brain. pt on neb and o2 at home. ems sts pt was 74% on 3L on arrival, had duoneb and went up to 95%, has a port but no access. Dr. Mccray is pcp, Dr. Hernandez is oncologist. pt is slow to respond, jaundice at bedside. Location of Pain/Injury: reports: generalized Pain Radiation: reports: no radiation Severity: reports: mild Onset/Duration: reports: 1 week ago, other (2-3 weeks poor kayla) Timing: reports: still present Context/Activities at Onset: reports: none Modifying Factors: improves with: nothing Associated Symptoms: reports: EENT symptoms, loss of appetite, shortness of breath, weakness. denies: fever/chills Recently seen or treated by another doctor?: Yes (cancer pt ) <Marlo Angulo - Last Filed: 09/11/19 18:45> <Velia Best - Last Filed: 09/11/19 22:37> - General Stated Complaint: failure to thrive Time Seen by Provider: 09/11/19 17:56 Allergies/Adverse Reactions: Patient Allergies Allergy/AdvReac Type Severity Reaction Status Date / Time No Known Allergies Allergy Verified 09/25/18 16:50 Home Medications: Home Medication List Medication Instructions Recorded Confirmed Last Taken Type Gabapentin 300 mg PO BID 09/09/18 09/25/18 09/11/18 08:00 History Glimepiride 2 mg PO DAILY 09/09/18 09/25/18 09/11/18 08:00 History Losartan Potassium 50 mg PO DAILY 09/09/18 09/25/18 09/11/18 08:00 History Sitagliptin Phos/Metformin HCl 1 tab PO HS 09/09/18 09/25/18 09/11/18 08:00 History [Janumet Xr 100-1,000 mg Tablet] Multivitamins/Minerals [Centrum 1 tab PO DAILY 09/26/18 09/26/18 Unknown History Silver] Vitamin B Complex [B Complex] 1 cap PO DAILY 09/26/18 09/26/18 Unknown History Zinc 50 mg PO DAILY 09/26/18 09/26/18 Unknown History Acetaminophen [Tylenol] 650 mg PO Q4H PRN PRN tab 09/29/18 Unknown Rx Acetylcysteine 20% [Mucomyst 20%] 3 ml INH RTBID vial 09/29/18 Unknown Rx Albuterol 2.5MG/Ipratrop 0.5MG 3 ml INH RTQ4H.WA neb 09/29/18 Unknown Rx [Duoneb (A & A)] Amoxicillin/Potassium Clav 1 ea PO BID #14 tab 09/29/18 Unknown Rx [Augmentin 875-125 Tablet] Docusate Sodium [Colace] 100 mg PO BID cap 09/29/18 Unknown Rx Guaifenesin/Dm [Robitussin-Dm] 10 ml PO Q4HR.AWAKE bottle 09/29/18 Unknown Rx Hydrocodone/APAP 7.5 mg/325 mg 1 ea PO Q6H PRN PRN tab 09/29/18 Unknown Rx [Rescue-7.5] Magnesium Hydroxide [Milk of 30 ml PO DAILY PRN PRN udc 09/29/18 Unknown Rx Magnesia] Metoclopramide HCl 0.5 mg PO 4XDAY PRN PRN #0 09/29/18 09/26/18 Unknown Rx Nicotine Patch [Nicoderm Patch] 14 mg TD DAILY PRN PRN patch.td24 09/29/18 Unknown Rx Omeprazole [Prilosec] 40 mg PO ACB cap 09/29/18 Unknown Rx Review of Systems - Adult - REVIEW OF SYSTEMS - ADULT Constitutional: reports: no symptoms reported. denies: chills, fever, night sweats Eyes: reports: no symptoms reported Ears, Nose, Mouth & Throat: reports: see HPI, sinus problem (congestion). denies: ear discharge, ear pain, hoarseness, throat pain Cardiovascular: reports: no symptoms reported Respiratory: reports: see HPI, shortness of breath. denies: excessive sputum production, hemoptysis, pleurisy Gastrointestinal: reports: see HPI, poor appetite. denies: abdominal pain, diarrhea, vomiting Genitourinary: reports: no symptoms reported Musculoskeletal: reports: see HPI, muscle weakness (generalized). denies: frequent leg cramps, joint pain, joint swelling Integumentary: reports: no symptoms reported Neurological: reports: no symptoms reported Psychiatric: reports: no symptoms reported Endocrine: reports: no symptoms reported Hematologic/Lymphatic: reports: no symptoms reported Allergic/Immunologic: reports: no symptoms reported All Other Systems: Reviewed and Negative <Marlo Angulo - Last Filed: 09/11/19 18:45> Past History - Adult - PAST MEDICAL HISTORY-ADULT Review of Records: reports: Nursing Assessment Review, Medications Reviewed, Social history reviewed & non-contributory. Major Childhood Illnesses: reports: denies history Cardiovascular: reports: HTN Respiratory: reports: cancer (w/mets to brain and liver) Gastrointestinal: reports: denies history Obstetrical/Gynecological: reports: endometriosis Genitourinary: reports: denies history Musculoskeletal: reports: denies history Neurological: reports: denies history Endocrine/Immune: reports: Diabetes Other Conditions: reports: denies history - PRIOR SURGERIES/PROCEDURES Surgical/Procedure History: reports: cholecystectomy, other (endometrial ablation) - IMMUNIZATION STATUS Childhood Immunizations: See Nurse Assessment Flu Vaccine: See Nurse Assessment - FAMILY HISTORY Family History: reviewed, not pertinent - SOCIAL HISTORY Smoking: other (former smoker) Substance Use: none/never <Marlo Angulo - Last Filed: 09/11/19 18:45> Physical Exam-General - PHYSICAL EXAM-ADULT Initial Vital Signs Reviewed: Yes - CONSTITUTIONAL General Appearance: alert, mild distress, cachetic, slow to respond. negative: lethargic, combative - EYES Eyes: PERRL/EOMI - HEAD, EARS, NOSE, MOUTH & THROAT HENMT: normocephalic/atraumatic. negative: moist mucous membranes (dyr mucous membranes) - NECK Neck: non-tender, full range of motion, supple, normal inspection - RESPIRATORY Respiratory: chest non-tender, normal breath sounds, no pleuratic chest pain, no respiratory distress, no accessory muscle use, rhonchi (bilat bases). negative: lungs clear, respiratory distress, decreased breath sounds, accessory muscle use, rales, wheezing - CARDIOVASCULAR Cardiovascular: normal peripheral pulses, regular rate, rhythm - GASTROINTESTINAL (ABDOMEN) Abdominal Exam: normal bowel sounds, non tender, soft - MUSCULOSKELETAL Back Exam: normal inspection Extremity: normal range of motion, non-tender, normal inspection, no calf tenderness, normal capillary refill, pelvis stable, swelling (1+ edema BLE). negative: abnormal NV exam, pulse deficit, slow capillary refill Peripheral Pulses: dorsalis-pedis (R): 2+, dorsalis-pedis (L): 2+ - SKIN Integumentary: normal turgor, warm/dry, jaundice (moderate). 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 There is complete opacification of the right hemithorax. This indicates marked atelectasis or large effusion. There does appear to be some rightward mediastinal shift suggesting volume loss. However, this could also be due to rotation. The left lung is grossly clear. The visualized portion of the cardiac silhouette is unremarkable. IMPRESSION: Complete opacification of the right hemithorax as described. Electronically signed by Kirit Dominique 09/11/2019 6:25 PM) - CHANGE OF SHIFT REPORT (ED Provider) 1 Report Given and Care Transferred to:: Dr Best Time of Transfer: 19:00 <Marlo Angulo - Last Filed: 09/11/19 18:45> - PLAN OF CARE/RESULTS Progress/Plan/Lab Results: Vital Signs - 8 hr 09/11/19 18:40 Temperature 97.8 F Pulse Rate 119 H Respiratory Rate 19 Blood Pressure 113/61 O2 Sat by Pulse Oximetry 88 L Laboratory Results - last 24 hr 09/11/19 18:27 Specimen Type ARTERIAL Sample Site R RADIAL pH 7.45 pCO2 40 pO2 52 L HCO3 27.4 H Base Excess 3.5 H Oxyhemoglobin 87.4 L* ABG O2 Sat (Calculated) 15.7 ABG O2 Saturation 91.3 L ABG Carboxyhemoglobin 3.40 H ABG Methemoglobin 1.0 Jorge Test YES A-a O2 Difference 126.0 Total Hemoglobin 12.8 Lactate 2.60 H Liter Flow 3.0 Blood Gas Modality CANNULA FiO2 % 32.0 Orders Category Date Time Status Saline Loc NOW Care 09/11/19 18:06 Active CHEST-PORTABLE [RAD] Stat Exams 09/11/19 18:[address] THORAX W/CONTRAST [CT] Stat Exams 09/11/19 18:50 Ordered ABG [RESP] Routine Lab 09/11/19 18:27 Completed BLOOD CULTURE [BLDCUL] Stat Lab 09/11/19 18:07 Ordered CBC WITH ELECTRONIC DIFF [HEME] Stat Lab 09/11/19 19:07 Results COMPREHENSIVE METABOLIC PANEL [CHEM] Stat Lab 09/11/19 19:07 Received INFLUENZA SCREEN A/B Stat Lab 09/11/19 19:17 Ordered LACTATE, PLASMA [CHEM] Stat Lab 09/11/19 19:07 Received MAGNESIUM [CHEM] Stat Lab 09/11/19 19:07 Received URINALYSIS W/POSS RFLX CULT [URINALYSIS] Stat Lab 09/11/19 18:08 Uncollected Albuterol 2.5MG/Ipratrop 0.5MG [Duoneb (A & A)] Med 09/11/19 18:50 Discontinued 3 ml INH NOW ONE CefTRIAXONE [Rocephin] 1 gm Med 09/11/19 18:09 Discontinued 0.9% Sodium Chloride Inj [Ns] 50 ml IV NOW Methylprednisolone Sod Succ [Solu-Medrol] Med 09/11/19 18:09 Discontinued 125 mg IV NOW ONE Aerosol Treatments Routine Oth 09/11/19 18:50 Active Aerosol Treatments Stat Oth 09/11/19 18:50 Active O2 Per Protocol Stat Oth 09/11/19 18:07 Active EKG [EKG] Stat Ther 09/11/19 18:07 Ordered Result Diagrams: 09/11/19 19:07 09/11/19 19:07 - CONSULTS/PCP/HOSPITALIST Notification #1 *Consult/PCP/Hospitalist*: Dr. Hartley Time Discussed: 22:36 Consult Disposition: Admit #2 Consult: Dr. Harmon Time Discussed: 22:36 Consult Disposition: Admit - CHANGE OF SHIFT REPORT (ED Provider) 2 Report Given and Care Transferred to:: Assumed care of this patient at shift change from Dr. Angulo Time of Transfer: 19:00 Items Pending: Labs, CT/MRI Results, Other (dispo) <Velia Best - Last Filed: 09/11/19 22:37> Departure <Marlo Angulo - Last Filed: 09/11/19 18:45> - Departure Date of Disposition Decision: 09/11/19 Time of Disposition Decision: 22:36 Certified Medical Emergency: Emergent - Critical Care Note This patient required my direct & personal management of CC.: No <Velia Best - Last Filed: 09/11/19 22:37> - Departure DIAGNOSIS: Lung mass Disposition: ADMITTED INPATIENT 09 Condition: Stable Referrals and Follow-Ups: Dale Coates MD [Primary Care Provider] - Attestation - Physician/ KAYLA Attestation Patient care was provided by Advanced Practice Provider:: No The physician spent face to face time with patient:: Yes Advanced Practice Provider documentation review:: Supervising physician onsite and consulted in the evaluation and care of this patient. The physician did have a face to face encounter with the patient. <Marlo Angulo - Last Filed: 09/11/19 18:45> - Physician/ KAYLA Attestation Patient care was provided by Advanced Practice Provider:: No The physician spent face to face time with patient:: Yes Advanced Practice Provider documentation review:: Supervising physician onsite and consulted in the evaluation and care of this patient. The physician did have a face to face encounter with the patient. <Velia Best - Last Filed: 09/11/19 22:37> This chart was documented by the indicated scribe, (Rebecca Dominique Scribe) and accurately reflects the services I performed and decisions made by me, Marlo Angulo MD, as attested by the provider's signature.
[2019-09-11] MEDS ORDERED: DUONEB (A & A) INH ONE (18:50)
[2019-09-11 19:53] LABS: BASO# 0.01 X1000 (0.0-0.2); BASO% 0.1 % (0.0-0.8); EOS# 0.01 X1000 (0.0-0.7); EOS% 0.1 % (0.0-10.0); HEMATOCRIT 37.2 % (37.0-47.0); HEMOGLOBIN 12.3 g/dL (12.0-16.0); IMM GRAN# 0.07 X1000 (0.0-0.04); IMM GRAN% 0.8 % (0.0-0.5); LYMPH# 0.76 X1000 (1.2-3.4); LYMPH% 8.5 % (20.5-51.1); MCH 32.2 PG (27-31); MCHC 33.1 g/dL (33-37); MCV 97.4 FL (81-99); MONO# 1.76 X1000 (0.11-0.59); MONO% 19.8 % (1.7-9.3); NEUT# 6.28 X1000 (1.4-6.5); NEUT% 70.7 % (42.2-75.2); PLT 61 X1000 (130-400); RBC 3.82 XMIL (4.2-5.4); RDW 18.4 % (11.5-14.5); WBC 8.89 X1000 (4.8-10.8)
[2019-09-11 20:25] LABS: ALBUMIN 2.8 g/dL (3.5-5.0); CALCIUM 9.5 mg/dL (8.8-10.2); CREATININE 1.5 mg/dL (0.5-0.9); POTASSIUM 3.4 mmol/L (3.5-5.1); TOTAL PROTEIN 5.6 g/dL (6.3-8.3)
[2019-09-11 20:28] LABS: TOTAL BILIRUBIN 18.7 mg/dL (0.20-1.00)
[2019-09-11] MEDS ORDERED: NS 1,000 ML ONE (21:07)
[2019-09-11] MEDS ORDERED: NS 1,000 ML IV ONE (21:17)
--- NOTE | 2019-09-11 22:03 | Diag Imaging Result Doc PS360 ---
EXAM: CT THORAX W/CONTRAST INDICATION: opacification right chest , effusion? TECHNIQUE: This exam was performed using automated exposure control, adjustment of mA or kV according to patient size, and/or use of iterative reconstruction technique. COMPARISON: 07/28/2019 FINDINGS: There is a known right hilar mass that is also seen on the previous study. It is now obstructing the right mainstem bronchus and resulting in complete collapse of the right lung. The mass is difficult to measure on the current study as it blends in with the collapsed lung but it is probably at least slightly larger. In addition, there is a large right pleural effusion. There is a nodule in the left lower lobe measuring up to 1.3 cm. This is approximately stable. There is subsegmental atelectasis in the lingula. Limited views of the upper abdomen reveals numerous metastatic lesions throughout the liver parenchyma this has worsened during the interval. For reference, there is a mass in the right hepatic lobe on image 100 of series 2 that measures up to 4.2 x 3.7 cm axially (2.4 x 2.4 cm previously). There is nothing to suggest local bony metastatic disease. IMPRESSION: 1.Right perihilar mass seen on the previous study is now obstructing the right mainstem bronchus resulting in complete collapse of the right lung. 2.Fairly large right pleural effusion. 3.Stable prominent left lower lobe lung nodule. 4.Interval worsening of metastatic disease to the liver. Electronically signed by Kirit Dominique 09/11/2019 10:00 PM
[2019-09-11] MEDS ORDERED: ZOFRAN IV ONE (22:44)
[2019-09-11] MEDS ORDERED: DILAUDID IV ONE (22:44)
[2019-09-12] MEDS ORDERED: ZOFRAN IV PRN (01:56)
[2019-09-12] MEDS: NS 1,000 ML IV SCH ×2 (02:23→15:21)
[2019-09-12] MEDS: HUMALOG SUBQ SCH ×5 (02:23→22:04)
[2019-09-12 02:40] LABS: HEMOGLOBIN A1C 7.2 % (4.8-6.0)
--- NOTE | 2019-09-12 05:37 | HISTORY AND PHYSICAL ---
CHIEF COMPLAINT: Shortness of breath. 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 I believe that she has been taking chemotherapy. Her last treatment was 2 weeks ago. She has had increasing shortness of breath and congestion that started last weekend, poor appetite for 2-3 weeks, and weakness. The patient is notably jaundiced. A chest x-ray was obtained which showed complete opacification of the right hemithorax, so a CT of the chest was obtained which showed right perihilar mass that was seen on the previous study is now obstructing the right mainstem bronchus, resulting in complete collapse of the right lung, a fairly large right pleural effusion. Prominent left lower lung nodule. Interval worsening of metastatic disease to the liver. Her total bilirubin on her labs was 18.70. I spoke to the family about hospice, which they stated that they would like to speak to hospice inpatient. She will be admitted with hospice consultation for further pain management and treatment. PAST MEDICAL HISTORY: Small cell lung cancer, diabetes type 2, hypertension, hyperlipidemia, GERD, peripheral neuropathy, chronic low back pain. PREVIOUS SURGICAL HISTORY: Cholecystectomy, BTL, bronchoscopy with biopsy, history of cervical biopsy and conization. FAMILY HISTORY: Acute leukemia in her father, COPD in her father, atrial fibrillation in her father. He had diabetes as well. He from an [place]. Multiple myeloma in her mother. Sister had cervical cancer and asthma. SOCIAL HISTORY: . Has 3 children. Has a 33-[id number]-grwn history of smoking. She had stopped but has now started back. No alcohol. No illicit drugs. ALLERGIES: NO KNOWN DRUG ALLERGIES. HOME MEDICATIONS: A list of home medications has not been reconciled. Order was placed for nursing to reconcile home medications. These will be restarted when appropriate. REVIEW OF SYSTEMS: A 14-point review of systems was conducted with the patient. Pertinent positives listed above in HPI. All other systems reviewed and found to be negative. PHYSICAL EXAMINATION: VITAL SIGNS: Temperature 97.8, pulse 118, respirations 16, blood pressure 128/59, oxygen saturation 89% on 2L nasal cannula. GENERAL: Unfortunate 54-year-old female, very jaundiced, lying on the ER stretcher. She is in no acute distress. She is alert and oriented x3. HEENT: Head is atraumatic, normocephalic. Pupils are equal, round, react to light. Extraocular eye movements are intact. Sclera jaundiced. Conjunctiva pink. Oral mucosa is dry. NECK: Supple. No JVD. No thyromegaly. Trachea is midline. No cervical lymphadenopathy. CARDIAC: S1, S2 appreciated. Tachycardic. No murmurs, gallops, rubs. LUNGS: Very decreased or nonexistent on the right. Expiratory wheezing noted on the left. ABDOMEN: Soft, nondistended, nontender. Bowel sounds present all 4 quadrants, normoactive. No pulsatile mass or organomegaly. EXTREMITIES: No clubbing, cyanosis or edema. 2+ pedal pulses. GENITOURINARY: No bladder distention. Patient voids, otherwise deferred. NEUROLOGICAL: Alert and oriented x3. No focal motor deficits. Otherwise nonfocal examination. DIAGNOSTIC DATA: CT of the chest shows mass that has obstructed the right side of the side of the mainstem bronchus. LABORATORY DATA: WBC 8.89, hemoglobin 12.3, hematocrit 37.2, platelet count 61,000. ABG pH 7.45, pCO2 40, pO2 52, bicarb 37.4. This was on 3L nasal cannula. Sodium 133, potassium 3.4, chloride 91, carbon dioxide 27, BUN 53, creatinine 1.5, glucose 370. Total bilirubin 18.70. ASSESSMENT AND PLAN: 1. Small cell lung cancer with mets to the brain and liver. 2. Hyperbilirubinemia. 3. Acute kidney injury. 4. Hypokalemia. 5. Diabetes mellitus type 2 with hyperglycemia. PLAN: Admit patient to the medical floor. Dr. Coates will assume care of the patient tomorrow as he is her primary care provider to consult Dr. Harmon. Treat with sliding scale insulin and fingerstick blood sugars, Dilaudid 1 mg IV q.2h. as needed for pain. Will give fluids and Zofran as needed for nausea. Consult Case Management and Chemical Engineer to speak to the patient about hospice. The patient's prognosis is poor. Further recommendations based on patient's clinical course. Dictated by LEAH An for Roman Hartley MD cc: LEAH An MD Independent exam and assessment done by me at bedside with GRAPHIC DESIGN ASSISTANT. Prognosis is very poor. Pt wants to be a full code. I would prefer end of life discussions be had with her PCP next day. KATHI
--- NOTE | 2019-09-12 07:48 | EKG Report ---
Test Performed on : 09/12/2019 00:43:34 AM Test Reason : sob Blood Pressure : / mmHG Vent. Rate : 120 BPM Atrial Rate : 120 BPM P-R Int : 116 ms QRS Dur : 082 ms QT Int : 312 ms P-R-T Axes : 037 034 -15 degrees QTc Int : 440 ms Sinus tachycardia. Possible Left atrial enlargement Low voltage QRS Nonspecific T wave abnormality Abnormal ECG When compared with ECG of 25-SEP-2018 16:21, T wave inversion more evident in Inferior leads Nonspecific T wave abnormality now evident in Anterolateral leads Unconfirmed Result
[2019-09-12 08:38] LABS: BASO# 0.01 X1000 (0.0-0.2); BASO% 0.1 % (0.0-0.8); HEMATOCRIT 34.7 % (37.0-47.0); HEMOGLOBIN 11.4 g/dL (12.0-16.0); IMM GRAN# 0.04 X1000 (0.0-0.04); IMM GRAN% 0.4 % (0.0-0.5); LYMPH# 0.61 X1000 (1.2-3.4); LYMPH% 5.4 % (20.5-51.1); MCH 32.2 PG (27-31); MCHC 32.9 g/dL (33-37); MONO# 1.26 X1000 (0.11-0.59); MONO% 11.1 % (1.7-9.3); NEUT# 9.47 X1000 (1.4-6.5); PLT 63 X1000 (130-400); RBC 3.54 XMIL (4.2-5.4); RDW 18.5 % (11.5-14.5); WBC 11.39 X1000 (4.8-10.8)
[2019-09-12 09:07] LABS: URINE SOURCE CATH
[2019-09-12 09:09] LABS: BILIRUBIN URINE MODERATE (NEGATIVE); BLOOD URINE NEGATIVE (NEGATIVE); COLOR YELLOW; GLUCOSE URINE 200 mg/dL (NEGATIVE); KETONE URINE NEGATIVE (NEGATIVE); SP GRAVITY URINE 1.039; TURBIDITY URINE HAZY (CLEAR)
[2019-09-12 09:10] LABS: LEUKOCYTES URINE NEGATIVE (NEGATIVE); NITRITE URINE NEGATIVE (NEGATIVE); PROTEIN URINE TRACE mg/dL (NEGATIVE); UROBILINOGEN URINE 3 mg/dL (NORMAL)
[2019-09-12 09:28] LABS: CALCIUM 9.3 mg/dL (8.8-10.2); CREATININE 1.5 mg/dL (0.5-0.9); POTASSIUM 3.6 mmol/L (3.5-5.1)
[2019-09-12 09:29] LABS: BANDS 4 % (0-1); LARGE PLATELETS 1+; LYMPHS 6 % (21-51); MONO 6 % (1-9); SEGS 84 % (42-75)
[2019-09-12 09:40] LABS: UR EPITHELIAL CELLS <10 /HPF (<10); URINE BACTERIA NEGATIVE /HPF; URINE RBC <10 /HPF (<10)
[2019-09-12 09:41] LABS: URINE CRYSTALS NONE SEEN
[2019-09-12] MEDS: DILAUDID IV PRN ×3 (10:43→22:02)
[2019-09-12] MEDS ORDERED: BLISTEX MEDICATED BERRY LIP BALM TOP PRN (12:07)
--- NOTE | 2019-09-12 19:54 | PROGRESS NOTE ---
DATE: 09/12/2019 SUBJECTIVE: Ms. Salvador is a 54-year-old, white female patient, admitted with shortness of breath. The patient was also found to be jaundiced. Patient had chest congestion that started over the weekend. Her appetite was poor. The patient received chemotherapy about 2 weeks ago. Chest x-ray showed complete opacification of the right hemithorax. Chest CT showed right perihilar mass. Patient was deeply jaundiced. OBJECTIVE: Vital signs: Noted. Neck: Supple. No JVD. Decreased air entry in right lung. Cardiovascular: S1 and S2 heard. Abdomen: Soft, globular. Mild distention. Bowel sounds present. Extremities: No cyanosis, clubbing. Minimal swelling. central nervous system: Patient is sleeping, arousable, able to move all 4 limbs. LABORATORY DATA: Noted. ASSESSMENT/PLAN: I evaluated the patient. Discussed her condition and prognosis with the patient, and I talked to her son at length about her condition and poor prognosis, and they requested DNR. We also discussed about comfort care and hospice. As per patient's wishes, we are going to consider palliative care and hospice. CONSIDERATIONS: 1. Recurrence of lung cancer with metastasis to the liver and possibly to the brain. 2. Jaundice. 3. Altered mental status. 4. Diabetes mellitus. Overall prognosis is poor. The patient is aware of prognosis. Family is aware of prognosis. cc: Dale Coates MD
[2019-09-13] MEDS: DILAUDID IV PRN ×4 (02:17→08:46)
--- NOTE | 2019-09-13 04:25 | PULMONOLOGY CONSULTATION ---
DATE: 09/12/2019 REQUESTING CLINICIAN: Dr. Odilia MD. REASON FOR CONSULTATION: Lung mass with obstruction of the right mainstem. HISTORY OF PRESENT ILLNESS: Ms. Salvador is a 54-year-old white female who underwent bronchoscopy by this practitioner 09/12/2018 for a right hilar mass. 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 The patient was treated by Dr. Hernandez, and was being evaluated for prophylactic cranial irradiation when she was found to have brain metastasis. She remains under treatment with her last treatment about 2 weeks ago. She presented to the emergency room last evening with increasing weakness, altered mental status, and jaundice. I was notified last evening about her admission, and was asked to comment on treatment of the right mainstem opacification. The patient is arousable, but she has difficulty answering questions. Currently, there is no one at her bedside. PAST MEDICAL HISTORY/PROBLEM LIST: 1. Recurrent/progressive and metastatic small cell carcinoma as per above. 2. Type 2 diabetes mellitus. 3. Chronic back pain. 4. Status post cholecystectomy. 5. History of uterine ablation. 6. History of B12 deficiency. SOCIAL HISTORY: Prior tobacco use. The patient did stop and restart, but I am not sure whether she is currently smoking. She was . No alcohol use. FAMILY HISTORY: Positive for diabetes, COPD, leukemia, coronary artery disease, cervical cancer, and multiple myeloma. REVIEW OF SYSTEMS: Limited. PHYSICAL EXAMINATION: General: Reveals a slow to respond white female who is overtly jaundiced. She appears to be comfortable. Blood pressure 119/57, heart rate 128, respiratory rate 18, and oxygen saturation 92% on nonrebreather. HEENT: Pupils are equal with icteric sclera. Oropharynx appears clear but dry. Neck: Supple. Chest: Reveals near absence of breath sounds on the right. Cardiac: S1-S2. Abdomen: Soft with fullness in the right upper quadrant. Extremities: Reveal peripheral edema. LABORATORIES: White blood count 11.39, hemoglobin 11.4, and platelet count 63,000. Sodium 136, potassium 3.6, chloride 96, bicarbonate 24, BUN 58, creatinine 1.5, and glucose 220. Arterial blood gas reveals a pH 7.45, pCO2 of 40, PO2 of 52 with a carboxyhemoglobin of 3.4. CT scan of the thorax is reviewed. She has a right perihilar mass which is obstructing the right mainstem bronchus. This does not appear to be stentable. There is a large right-sided effusion. There is increasing metastatic disease in the liver. IMPRESSION: A 54-year-old with: 1. Metastatic small cell carcinoma. 2. Gross liver dysfunction with jaundice. 3. Encephalopathy likely related to underlying illness. 4. Acute hypoxemic respiratory failure. DISCUSSION: A 54-year-old with problems outlined above. Her time appears limited, and she is not a candidate for aggressive evaluation. End of life discussions have been held by Dr. Coates, and she will be allowed to have a natural . RECOMMENDATIONS: 1. Agree with comfort measures as you are doing. 2. Agree with hospice evaluation. cc: MD Dale Govea MD
[2019-09-13] MEDS: NS 1,000 ML IV SCH (04:38)
[2019-09-13] MEDS: HUMALOG SUBQ SCH (06:16)
[2019-09-13] MEDS ORDERED: LASIX IV ONE (07:00)
[2019-09-13 07:48] VITALS: BP 124/58
--- NOTE | 2019-09-13 07:52 | PROGRESS NOTE ---
DATE: 09/13/2019 SUBJECTIVELY: Ms Salvador is not doing well, poorly responsive, in respiratory distress. The patient is on oxygen via Ventimask. The patient does have low-grade fever. No chills. Denied any nausea or vomiting. Oral intake is poor. Dr. Harmon's consultation reviewed. The patient is not communicating. OBJECTIVE: Vital Signs: Noted. Neck: Supple. Lungs: Bilateral inspiratory crepitation. Decreased air entry, right lung. Cardiovascular: S1 and S2. Tachycardia. Abdomen: Soft, globular. Bowel sounds present. Central nervous system: Alert, awake. The patient is responding to painful stimuli. Uncooperative for detailed exam. CONSIDERATION: 1. Metabolic encephalopathy. 2. Metastatic small-cell carcinoma. 3. Possible encephalopathy could be hepatic. 4. Acute hypoxemic respiratory failure. 5. Diabetes mellitus. PLAN: Overall prognosis is poor. The patient's family was present. Overall prognosis discussed with the family and they are in agreement. The patient is on comfort care. I am going to give her a small dose of Lasix. Continue rest of the treatment. cc: Dale Coates MD
[2019-09-13] MEDS ORDERED: TYLENOL PR PRN (08:26)
== END 2019-09-13 09:02 | disposition expired | DRG 843 ==
LOC: SUPCPDRO → ED 17:51 → EDIPHOLD 09-12 00:04 → SUATTDRO 09-12 00:04 → 3N 09-12 01:03
PROVIDERS: ADMIT Internal Medicine; ATTEND Internal Medicine